=== PATIENT | male | born 1985 | race Hispanic/Latino ===

== ENCOUNTER 2020-01-29 22:29 | Emergency (ER) | payer SELFPAY ==
[~2020-01-29] VITALS: Ht 175.3 cm; Wt 65.8 kg
[2020-01-29] MEDS ORDERED: LIDOCAINE HCL 1% LOCAL INJ 20 ML VIAL ONE (22:46)
[2020-01-29] MEDS ORDERED: TETANUS/DIPHTHERIA TOX ADULT 0.5 ML SYR ONE (22:46)
--- NOTE | 2020-01-29 23:05 | Emergency Department Note ---
History of Present Illnes History of Present Illness Chief Complaint: Laceration History of Present Illness This is a 34 year old male . Historian: Patient Arrival Mode: Car Past Medical/Family History Physician Review I have reviewed the patient's past medical and family history. Any updates have been documented here. Past Medical History Recent Fever: No Clinical Suspicion of Infectio: No New/Unexplained Change in Ment: No Past Medical History: None Past Surgical History: None Social History Smoking Cessation: Never Smoker Counseling Performed: No Alcohol Use: None Any Illegal Drug Use: No TB Exposure/Symptoms: No Physically hurt or threatened: No Family History Family history of heart diseas: No Other Last Tetanus: > 5 YEARS AGO Any Pre-Existing Lines (PICC,: No Is patient up to date on immun: Yes Last Flu: DENIES Last Pneumovax: DENIES Physical Exam Related Data Allergies: Coded Allergies: No Known Allergies (Unverified , 10/20/14) Triage Vital Signs Vital Signs Date Time Temp Pulse Resp B/P (MAP) Pulse Ox O2 Delivery O2 Flow Rate FiO2 01/29/20 22:45 97.9 86 17 142/92 100 Physical Exam CONSTITUTIONAL HENT EYES NECK PULMONARY CARDIOVASCULAR GASTROINTESTINAL GENITOURINARY SKIN MUSCULOSKELETAL NEUROLOGICAL PSYCHOLOGICAL Procedures 12 Lead ECG Interpretation ECG Interpretation : ECG: ECG 1 Laceration Laceration: Laceration 1 Site: upper extremity (distal 3rd digit) Side: left Size (cm): 2 Description: stellate, irregular Depth: simple, single layer Local anesthesia: lidocaine 1% Pre-repair: wound exposed, irrigated extensively Skin layer closed with: nylon Size (cm): 4-0 Number of sutures: 11 Technique: simple, interrupted Assessment & Plan Medical Decision Making MDM 34 yom with complicated laceration of finger. Wound primarily repaired. Rx Keflex and tylenol #3 Assessment & Plan Final Impression: (1) Finger laceration Depart Disposition: HOME, SELF-CARE Last Vital Signs Date Time Temp Pulse Resp B/P (MAP) Pulse Ox O2 Delivery O2 Flow Rate FiO2 01/29/20 22:45 97.9 86 17 142/92 100 Home Meds No Active Prescriptions or Reported Meds Medications in the ED Lidocaine HCl 20 ml STK-MED ONCE .ROUTE ; Start 01/29/20 at 22:46; Stop 01/29/20 at 22:40; Status DC Tetanus/ Diphtheria Toxoids 0.5 ml STK-MED ONCE .ROUTE ; Start 01/29/20 at 22:46; Stop 01/29/20 at 22:40; Status MINDY BRO DO Jan 29, 2020 23:05
[2020-01-29] MEDS ORDERED: BACITRACIN ZINC 0.9GM TP ONE ×2 (23:09→23:15)
[2020-01-29] MEDS ORDERED: TETANUS/DIPHTHERIA TOX ADULT 0.5 ML SYR IM ONE (23:15)
[2020-01-29] MEDS ORDERED: LIDOCAINE HCL 1% LOCAL INJ 20 ML VIAL INJ ONE (23:30)
== END 2020-01-29 23:20 | disposition home or self-care (01) ==
LOC: ER 22:29
DX: S61.213A Laceration without foreign body of left middle finger without damage to nail, initial encounter (principal); W45.8XXA Other foreign body or object entering through skin, initial encounter
CPT/HCPCS: 12001; 90471; 90714; 99284; J2001